=== PATIENT | female | born 1945 | race Native Hawaiian/Other Pacific Islander ===

== ENCOUNTER 2021-03-17 07:55 | Outpatient (CLI) | payer OTHER ==
[~2021-03-17] VITALS: Ht 165.1 cm; Wt 79.8 kg
[~2021-03-17 07:55] MED LIST: VALS160T PO
== END 2021-03-17 19:41 | disposition home or self-care (01) ==
LOC: DIABINF 07:55
PROVIDERS: ATTEND Internal Medicine Endocrinology, Diabetes & Metabolism
DX: E88.81 Metabolic syndrome and other insulin resistance (principal); I10 Essential (primary) hypertension; E78.49 Other hyperlipidemia; G62.9 Polyneuropathy, unspecified; E55.9 Vitamin D deficiency, unspecified
CPT/HCPCS: 82948; 96365; 96366; 96521; J1815; J1817

== ENCOUNTER 2021-03-19 12:52 | Outpatient (CLI) | payer OTHER ==
[~2021-03-19] VITALS: Ht 165.1 cm; Wt 79.8 kg
== END 2021-03-19 20:10 | disposition home or self-care (01) ==
LOC: DIABINF 12:52
PROVIDERS: ATTEND Internal Medicine Endocrinology, Diabetes & Metabolism
DX: E88.81 Metabolic syndrome and other insulin resistance (principal); I10 Essential (primary) hypertension; E78.2 Mixed hyperlipidemia; G62.89 Other specified polyneuropathies; E55.9 Vitamin D deficiency, unspecified; K21.9 Gastro-esophageal reflux disease without esophagitis; J44.9 Chronic obstructive pulmonary disease, unspecified; R91.1 Solitary pulmonary nodule; J45.909 Unspecified asthma, uncomplicated
CPT/HCPCS: 82948; 96365; 96366; 96521; J1815; J1817

== ENCOUNTER 2021-03-24 07:44 | Outpatient (CLI) | payer OTHER ==
[~2021-03-24] VITALS: Ht 165.1 cm; Wt 79.6 kg
== END 2021-03-24 22:59 | disposition home or self-care (01) ==
LOC: DIABINF 07:44
PROVIDERS: ATTEND Internal Medicine Endocrinology, Diabetes & Metabolism
DX: E88.81 Metabolic syndrome and other insulin resistance (principal); I10 Essential (primary) hypertension; E78.2 Mixed hyperlipidemia; G62.89 Other specified polyneuropathies; E55.9 Vitamin D deficiency, unspecified; K21.9 Gastro-esophageal reflux disease without esophagitis; J44.9 Chronic obstructive pulmonary disease, unspecified; R91.1 Solitary pulmonary nodule; J45.909 Unspecified asthma, uncomplicated
CPT/HCPCS: 82948; 96365; 96366; 96521; J1815; J1817

== ENCOUNTER 2021-03-26 12:47 | Outpatient (CLI) | payer OTHER ==
[~2021-03-26] VITALS: Ht 165.1 cm; Wt 79.6 kg
== END 2021-03-26 19:21 | disposition home or self-care (01) ==
LOC: DIABINF 12:47
PROVIDERS: ATTEND Internal Medicine Endocrinology, Diabetes & Metabolism
DX: E88.81 Metabolic syndrome and other insulin resistance (principal); I10 Essential (primary) hypertension; E78.2 Mixed hyperlipidemia; G62.89 Other specified polyneuropathies; E55.9 Vitamin D deficiency, unspecified; K21.9 Gastro-esophageal reflux disease without esophagitis; J44.9 Chronic obstructive pulmonary disease, unspecified; R91.1 Solitary pulmonary nodule; J45.909 Unspecified asthma, uncomplicated; H40.89 Other specified glaucoma
CPT/HCPCS: 82948; 96365; 96366; 96521; J1815; J1817

== ENCOUNTER 2021-04-02 13:01 | Outpatient (CLI) | payer OTHER ==
[~2021-04-02] VITALS: Ht 165.1 cm; Wt 79.8 kg
== END 2021-04-02 16:00 | disposition home or self-care (01) ==
LOC: DIABINF 13:01
PROVIDERS: ATTEND Internal Medicine Endocrinology, Diabetes & Metabolism
DX: E88.81 Metabolic syndrome and other insulin resistance (principal); I10 Essential (primary) hypertension; E78.2 Mixed hyperlipidemia; E11.42 Type 2 diabetes mellitus with diabetic polyneuropathy; E55.9 Vitamin D deficiency, unspecified; K21.9 Gastro-esophageal reflux disease without esophagitis; J44.9 Chronic obstructive pulmonary disease, unspecified; R91.1 Solitary pulmonary nodule; J45.998 Other asthma; N28.89 Other specified disorders of kidney and ureter
CPT/HCPCS: 82948; 96365; 96366; 96521; J1815; J1817

== ENCOUNTER 2021-04-09 12:52 | Outpatient (CLI) | payer OTHER ==
[~2021-04-09] VITALS: Ht 165.1 cm; Wt 79.6 kg
== END 2021-04-09 16:00 | disposition home or self-care (01) ==
LOC: DIABINF 12:52
PROVIDERS: ATTEND Nurse Practitioner
DX: E88.81 Metabolic syndrome and other insulin resistance (principal); E11.40 Type 2 diabetes mellitus with diabetic neuropathy, unspecified; I10 Essential (primary) hypertension; E78.00 Pure hypercholesterolemia, unspecified; J42 Unspecified chronic bronchitis; J45.998 Other asthma; K76.0 Fatty (change of) liver, not elsewhere classified; E55.9 Vitamin D deficiency, unspecified; H40.89 Other specified glaucoma; J30.2 Other seasonal allergic rhinitis
CPT/HCPCS: 82948; 96365; 96366; 96521; J1815; J1817

== ENCOUNTER 2021-04-16 12:54 | Outpatient (CLI) | payer OTHER ==
[~2021-04-16] VITALS: Ht 165.1 cm; Wt 79.6 kg
== END 2021-04-16 20:23 | disposition home or self-care (01) ==
LOC: DIABINF 12:54
PROVIDERS: ATTEND Internal Medicine Endocrinology, Diabetes & Metabolism
DX: E88.81 Metabolic syndrome and other insulin resistance (principal); I10 Essential (primary) hypertension; E78.2 Mixed hyperlipidemia; E11.42 Type 2 diabetes mellitus with diabetic polyneuropathy; E55.9 Vitamin D deficiency, unspecified; K21.9 Gastro-esophageal reflux disease without esophagitis; J44.9 Chronic obstructive pulmonary disease, unspecified; R91.1 Solitary pulmonary nodule; J45.998 Other asthma; H40.89 Other specified glaucoma; M79.671 Pain in right foot; N28.89 Other specified disorders of kidney and ureter
CPT/HCPCS: 82948; 96365; 96366; 96521; J1815; J1817

== ENCOUNTER 2021-04-23 12:46 | Outpatient (CLI) | payer OTHER ==
[~2021-04-23] VITALS: Ht 165.1 cm; Wt 79.6 kg
== END 2021-04-23 22:07 | disposition home or self-care (01) ==
LOC: DIABINF 12:46
PROVIDERS: ATTEND Nurse Practitioner
DX: E88.81 Metabolic syndrome and other insulin resistance (principal); I10 Essential (primary) hypertension; E78.2 Mixed hyperlipidemia; E11.42 Type 2 diabetes mellitus with diabetic polyneuropathy; E55.9 Vitamin D deficiency, unspecified; K21.9 Gastro-esophageal reflux disease without esophagitis; J44.9 Chronic obstructive pulmonary disease, unspecified; R91.1 Solitary pulmonary nodule; J45.998 Other asthma; H40.89 Other specified glaucoma; M79.671 Pain in right foot; N28.89 Other specified disorders of kidney and ureter
CPT/HCPCS: 82948; 96365; 96366; 96521; J1815; J1817

== ENCOUNTER 2021-04-30 12:59 | Outpatient (CLI) | payer OTHER ==
[~2021-04-30] VITALS: Ht 165.1 cm; Wt 79.8 kg
== END 2021-04-30 22:53 | disposition home or self-care (01) ==
LOC: DIABINF 12:59
PROVIDERS: ATTEND Nurse Practitioner
DX: E88.81 Metabolic syndrome and other insulin resistance (principal); I10 Essential (primary) hypertension; E78.2 Mixed hyperlipidemia; E11.42 Type 2 diabetes mellitus with diabetic polyneuropathy; E55.9 Vitamin D deficiency, unspecified; K21.9 Gastro-esophageal reflux disease without esophagitis; J44.9 Chronic obstructive pulmonary disease, unspecified; R91.1 Solitary pulmonary nodule; J45.998 Other asthma; H40.89 Other specified glaucoma; M79.671 Pain in right foot; N28.89 Other specified disorders of kidney and ureter
CPT/HCPCS: 82948; 96365; 96366; 96521; J1815; J1817

== ENCOUNTER 2021-05-07 12:51 | Outpatient (CLI) | payer OTHER ==
[~2021-05-07] VITALS: Ht 165.1 cm; Wt 79.8 kg
== END 2021-05-07 19:10 | disposition home or self-care (01) ==
LOC: DIABINF 12:51
PROVIDERS: ATTEND Nurse Practitioner
DX: E88.81 Metabolic syndrome and other insulin resistance (principal); I10 Essential (primary) hypertension; E78.2 Mixed hyperlipidemia; G62.89 Other specified polyneuropathies; E55.9 Vitamin D deficiency, unspecified; K21.9 Gastro-esophageal reflux disease without esophagitis; J44.9 Chronic obstructive pulmonary disease, unspecified; R91.1 Solitary pulmonary nodule; J45.909 Unspecified asthma, uncomplicated; H40.89 Other specified glaucoma; M79.671 Pain in right foot; N28.89 Other specified disorders of kidney and ureter
CPT/HCPCS: 82948; 96365; 96366; 96521; J1815; J1817

== ENCOUNTER 2021-05-14 12:48 | Outpatient (CLI) | payer OTHER ==
[~2021-05-14] VITALS: Ht 165.1 cm; Wt 79.8 kg
== END 2021-05-14 22:38 | disposition home or self-care (01) ==
LOC: DIABINF 12:48
PROVIDERS: ATTEND Nurse Practitioner
DX: E88.81 Metabolic syndrome and other insulin resistance (principal); I10 Essential (primary) hypertension; E78.2 Mixed hyperlipidemia; G62.89 Other specified polyneuropathies; E55.9 Vitamin D deficiency, unspecified; K21.9 Gastro-esophageal reflux disease without esophagitis; J44.9 Chronic obstructive pulmonary disease, unspecified; R91.1 Solitary pulmonary nodule; J45.909 Unspecified asthma, uncomplicated; H40.89 Other specified glaucoma; M79.671 Pain in right foot; N28.89 Other specified disorders of kidney and ureter
CPT/HCPCS: 82948; 96365; 96366; 96521; J1815; J1817

== ENCOUNTER 2021-05-21 13:24 | Outpatient (CLI) | payer OTHER ==
[~2021-05-21] VITALS: Ht 165.1 cm; Wt 79.8 kg
== END 2021-05-21 20:01 | disposition home or self-care (01) ==
LOC: DIABINF 13:24
PROVIDERS: ATTEND Nurse Practitioner
DX: E88.81 Metabolic syndrome and other insulin resistance (principal); G62.9 Polyneuropathy, unspecified; I10 Essential (primary) hypertension; E78.00 Pure hypercholesterolemia, unspecified; K76.0 Fatty (change of) liver, not elsewhere classified; J42 Unspecified chronic bronchitis; J45.909 Unspecified asthma, uncomplicated; J30.2 Other seasonal allergic rhinitis
CPT/HCPCS: 82948; 96365; 96366; 96521; J1815; J1817

== ENCOUNTER 2021-05-28 11:24 | Outpatient (CLI) | payer OTHER ==
[~2021-05-28] VITALS: Ht 165.1 cm; Wt 79.8 kg
== END 2021-05-28 23:11 | disposition home or self-care (01) ==
LOC: DIABINF 11:24
PROVIDERS: ATTEND Nurse Practitioner
DX: E88.81 Metabolic syndrome and other insulin resistance (principal); G62.9 Polyneuropathy, unspecified; I10 Essential (primary) hypertension; E78.00 Pure hypercholesterolemia, unspecified; K76.0 Fatty (change of) liver, not elsewhere classified; J42 Unspecified chronic bronchitis; J45.998 Other asthma; J30.2 Other seasonal allergic rhinitis
CPT/HCPCS: 82948; 96365; 96366; 96521; J1815; J1817

== ENCOUNTER 2021-06-04 12:52 | Outpatient (CLI) | payer OTHER ==
[~2021-06-04] VITALS: Ht 165.1 cm; Wt 79.4 kg
== END 2021-06-04 19:08 | disposition home or self-care (01) ==
LOC: DIABINF 12:52
PROVIDERS: ATTEND Nurse Practitioner
DX: E88.81 Metabolic syndrome and other insulin resistance (principal); G62.9 Polyneuropathy, unspecified; I10 Essential (primary) hypertension; E78.00 Pure hypercholesterolemia, unspecified; K76.0 Fatty (change of) liver, not elsewhere classified; J42 Unspecified chronic bronchitis; J45.998 Other asthma; J30.2 Other seasonal allergic rhinitis
CPT/HCPCS: 82948; 96365; 96366; 96521; J1815; J1817

== ENCOUNTER 2021-06-11 12:46 | Outpatient (CLI) | payer OTHER | END 2021-06-11 22:03 | disposition home or self-care (01) | LOC: DIABINF 12:46 | PROVIDERS: ATTEND Nurse Practitioner | DX: E88.81 Metabolic syndrome and other insulin resistance (principal); G62.9 Polyneuropathy, unspecified; I10 Essential (primary) hypertension; E78.00 Pure hypercholesterolemia, unspecified; K76.0 Fatty (change of) liver, not elsewhere classified; J42 Unspecified chronic bronchitis; J45.909 Unspecified asthma, uncomplicated; J30.2 Other seasonal allergic rhinitis | CPT/HCPCS: 82948; 96365; 96366; 96521; J1815; J1817 ==

== ENCOUNTER 2021-06-18 12:44 | Outpatient (CLI) | payer OTHER ==
[~2021-06-18] VITALS: Ht 165.1 cm; Wt 79.4 kg
== END 2021-06-18 19:34 | disposition home or self-care (01) ==
LOC: DIABINF 12:44
PROVIDERS: ATTEND Nurse Practitioner
DX: E88.81 Metabolic syndrome and other insulin resistance (principal); G62.9 Polyneuropathy, unspecified; I10 Essential (primary) hypertension; E78.00 Pure hypercholesterolemia, unspecified; K76.0 Fatty (change of) liver, not elsewhere classified; J42 Unspecified chronic bronchitis; J45.998 Other asthma; J30.2 Other seasonal allergic rhinitis
CPT/HCPCS: 82948; 96365; 96366; 96521; J1815; J1817

== ENCOUNTER 2023-05-22 10:30 | Emergency (ER) | payer OTHER ==
[~2023-05-22] VITALS: Ht 165.1 cm; Wt 72.6 kg
[2023-05-22 10:48] LABS: PLATELET COUNT 342 K/uL (152-353)
[2023-05-22 11:02] LABS: POTASSIUM 3.7 mmol/L (3.6-5.2)
[2023-05-22 12:17] LABS: PARTIAL THROMBOPLASTIN TIME 31.5 SECONDS (23.9-36.7)
[2023-05-22 14:05] VITALS: BP 114/70; TEMP 97.8
== END 2023-05-22 14:05 | disposition short-term general hospital (02) ==
LOC: ED 10:30
PROVIDERS: Family Medicine
DX: I48.20 Chronic atrial fibrillation, unspecified (principal); S32.009A Unspecified fracture of unspecified lumbar vertebra, initial encounter for closed fracture; S22.39XA Fracture of one rib, unspecified side, initial encounter for closed fracture; D72.829 Elevated white blood cell count, unspecified; W19.XXXA Unspecified fall, initial encounter; I67.89 Other cerebrovascular disease
CPT/HCPCS: 36415; 80053; 84484; 85027; 85379; 85610; 85730; 93005; 96361; 96365; 96366; 96375; 99285; J2270; J2405; J3490

== ENCOUNTER 2023-05-31 09:52 | Outpatient (CLI) | payer OTHER ==
[2023-05-31 10:05] LABS: PLATELET COUNT 429 K/uL (152-353)
[2023-05-31 10:20] LABS: POTASSIUM 4.1 mmol/L (3.6-5.2)
== END 2023-05-31 18:57 | disposition home or self-care (01) ==
LOC: LAB 09:52
PROVIDERS: ATTEND Internal Medicine
DX: I48.91 Unspecified atrial fibrillation (principal); E87.6 Hypokalemia; E83.42 Hypomagnesemia; D72.828 Other elevated white blood cell count; I50.9 Heart failure, unspecified; N39.0 Urinary tract infection, site not specified; I11.0 Hypertensive heart disease with heart failure
CPT/HCPCS: 80053; 83735; 83880; 85027

== ENCOUNTER 2023-06-06 11:48 | Outpatient (CLI) | payer OTHER | END 2023-06-06 19:18 | disposition home or self-care (01) | LOC: CT 11:48 | PROVIDERS: ATTEND Internal Medicine | DX: S32.019D Unspecified fracture of first lumbar vertebra, subsequent encounter for fracture with routine healing (principal); S22.41XD Multiple fractures of ribs, right side, subsequent encounter for fracture with routine healing; M25.521 Pain in right elbow; Y92.89 Other specified places as the place of occurrence of the external cause ==

== ENCOUNTER 2023-06-08 10:10 | Outpatient (CLI) | payer OTHER ==
[2023-06-08 10:41] LABS: PLATELET COUNT 435 K/uL (152-353)
[2023-06-08 10:53] LABS: POTASSIUM 4.3 mmol/L (3.6-5.2)
== END 2023-06-08 19:58 | disposition home or self-care (01) ==
LOC: LAB 10:10
PROVIDERS: ATTEND Internal Medicine
DX: D72.828 Other elevated white blood cell count (principal); E83.42 Hypomagnesemia; I10 Essential (primary) hypertension; I48.91 Unspecified atrial fibrillation; Z79.899 Other long term (current) drug therapy; J45.20 Mild intermittent asthma, uncomplicated; M10.9 Gout, unspecified
CPT/HCPCS: 80053; 83735; 85027

== ENCOUNTER 2023-06-21 12:32 | Outpatient (CLI) | payer OTHER ==
[2023-06-21 13:44] LABS: PLATELET COUNT 321 K/uL (152-353)
== END 2023-06-21 19:06 | disposition home or self-care (01) ==
LOC: LAB 12:32
PROVIDERS: ATTEND Internal Medicine
DX: E83.42 Hypomagnesemia (principal); D72.828 Other elevated white blood cell count
CPT/HCPCS: 83735; 85027

== ENCOUNTER 2023-07-18 07:48 | Outpatient (CLI) | payer OTHER | END 2023-07-18 19:48 | disposition home or self-care (01) | LOC: US 07:48 | PROVIDERS: ATTEND Internal Medicine | DX: M79.661 Pain in right lower leg (principal); R58 Hemorrhage, not elsewhere classified ==

== ENCOUNTER 2023-07-20 11:21 | Outpatient (CLI) | payer OTHER ==
[2023-07-20 12:42] LABS: PLATELET COUNT 309 K/uL (152-353)
== END 2023-07-20 19:14 | disposition home or self-care (01) ==
LOC: LAB 11:21
PROVIDERS: ATTEND Internal Medicine
DX: D72.828 Other elevated white blood cell count (principal)
CPT/HCPCS: 36415; 85027

== ENCOUNTER 2023-08-07 10:57 | Outpatient (CLI) | payer OTHER | END 2023-08-07 18:54 | disposition home or self-care (01) | LOC: CT 10:57 | PROVIDERS: ATTEND Internal Medicine | DX: M79.672 Pain in left foot (principal); D36.13 Benign neoplasm of peripheral nerves and autonomic nervous system of lower limb, including hip; S92.309A Fracture of unspecified metatarsal bone(s), unspecified foot, initial encounter for closed fracture; Y92.89 Other specified places as the place of occurrence of the external cause ==